=== PATIENT | male | born 2000 | race Caucasian/White ===

== ENCOUNTER 2021-03-11 07:44 | Emergency (ER) | payer OTHER ==
[~2021-03-11] VITALS: Ht 180.3 cm; Wt 76.8 kg
[2021-03-11] MEDS ORDERED: LIDOCAINE 1% MDV 20ML VIAL SC ONE (09:45)
[2021-03-11] MEDS ORDERED: NEOSPORIN OINT 0.9 GM PKT TOP ONE (09:45)
[2021-03-11 10:15] VITALS: BP 140/85
== END 2021-03-11 10:27 | disposition home or self-care (01) ==
LOC: M ED 07:44
DX: S61.210A Laceration without foreign body of right index finger without damage to nail, initial encounter (principal); W26.0XXA Contact with knife, initial encounter; Y92.018 Other place in single-family (private) house as the place of occurrence of the external cause